=== PATIENT | male | born 1945 | race Caucasian/White ===

== ENCOUNTER → 2016-07-25 | Outpatient (CLI) | payer OTHER | LOC: FIMAGING 14:14 | PROVIDERS: ATTEND Family Medicine | DX: Z13.820 Encounter for screening for osteoporosis (principal); M85.80 Other specified disorders of bone density and structure, unspecified site; R29.890 Loss of height; Z82.62 Family history of osteoporosis ==

== ENCOUNTER → 2017-03-10 | Outpatient (CLI) | payer OTHER | LOC: FIMAGING 10:08 | PROVIDERS: ATTEND Family Medicine | DX: R13.10 Dysphagia, unspecified (principal); J02.9 Acute pharyngitis, unspecified ==

== ENCOUNTER 2017-05-29 15:16 | Emergency (ER) | payer OTHER ==
[2017-05-29 15:52] VITALS: PULSE 75; RESP 16; TEMP 98.2; O2SAT 92
--- NOTE | 2017-05-29 16:13 | EDPHY ---
H & P Stated Complaint: high BP Time Seen by Provider: 05/29/17 15:59 HPI/ROS: CHIEF COMPLAINT: High blood pressure HISTORY OF PRESENT ILLNESS: The patient is a 72 y/o male arriving with his for evaluation of elevated blood pressure over the last few days. His medical history includes hypertension, COPD, borderline diabetes, and anemia. He saw his PCP last week for an annual physical and they noted his SpO2 was low. His was recently diagnosed with the flu, so they swabbed him and found him also positive for influenza. He was placed on 5 days of prednisone and completed it 3 days ago. He has been having "sinus pain," mild headache, mild wheezing and coughing in the evenings, and nasal congestion over the last several days and has been using OTC cold medications containing phenylephrine during this time. He also feels like his equilibrium is slightly off when transitioning to standing, but denies dizziness or room spinning. He checked his blood pressure 2 nights ago at 156/94. He measured it again today in a similar range so he called his PCP's office and was instructed to come to the ED. He denies severe headache, vision changes, weakness, paresthesias, or other complaints. REVIEW OF SYSTEMS: Constitutional: No fever, no chills Eyes: No visual changes ENT: No sore throat Respiratory: see HPI Cardiac: No chest pain Gastrointestinal: No nausea, no vomiting, no abdominal pain Genitourinary: No hematuria, no dysuria Musculoskeletal: No leg pain or swelling Skin: No rash Neurological: +headache, no numbness, no weakness Psychiatric: No depression - Personal History Current Tetanus/Diphtheria Vaccine: Yes Current Tetanus Diphtheria and Acellular Pertussis (TDAP): Yes - Medical/Surgical History PMH: PMH includes: 1. COPD 2. Hypertension - not medicated 3. GERD 4. Anemia 5. BPH 6. Borderline diabetes 7. 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 Anxiety - Inderal PRN Hx Asthma: No Hx Chronic Respiratory Disease: Yes Hx Diabetes: Yes Hx Cardiac Disease: No Hx Renal Disease: No Hx Cirrhosis: No Hx Alcoholism: No Hx HIV/AIDS: No Hx Splenectomy or Spleen Trauma: No Other PMH: HTN, COPD, GERD, ANEMIA, BPH, BORDERLINE DIABETIC, BILATERAL KNEE REPLACEMENT, BILATERAL SHOULDER REPLACEMENT - Social History Smoking Status: Former smoker Additional Social History: at bedside. Lives in [place]. Former smoker. PCP: Dr. Morataya - Physical Exam Exam: General Appearance: Alert, no distress, BP 177/109 in triage Eyes: Pupils equal and round, no conjunctival pallor or injection ENT, Mouth: Mucous membranes moist Neck: Normal inspection Respiratory: Lungs are clear to auscultation Cardiovascular: Regular rate and rhythm Gastrointestinal: Abdomen is soft and non- tender Neurological: A&O, nonfocal, normal gait Skin: Warm and dry, no rash Extremities: Nontender, no pedal edema Psychiatric: Mood and affect normal Constitutional: Initial Vital Signs Temperature (C) 36.8 C 05/29/17 15:50 Heart Rate 75 05/29/17 15:50 Respiratory Rate 16 05/29/17 15:50 Blood Pressure 177/109 H 05/29/17 15:50 O2 Sat (%) 92 05/29/17 15:50 O2 Delivery Mode Room Air Allergies/Adverse Reactions: N-SAIDS Allergy (Uncoded 03/17/14 15:46) Home Medications: Medication Instructions Recorded Albuterol [Proventil Inhaler HFA 2 puffs IH Q4 PRN 03/14/14 (*)] Calcium Carbonate [Calcium] 500 mg PO DAILY PRN 03/14/14 Calcium/Magnesium/Vit D3 [Calcium 1 each PO BID 03/14/14 500 mg Tablet] Divalproex ER [Depakote ER 500 MG 500 mg PO TID 03/14/14 (*)] Ferrous Sulfate [Ferrous Sulf 325 325 mg PO DAILY 03/14/14 MG (*)] Glucosam/Chondr/Collagn/Hyalur 1 each PO DAILY 03/14/14 [Glucosamine & Chondroitin Cap] Herbals/Supplements -Info Only 1 ea PO DAILY 03/14/14 Magnesium Oxide [Magnesium Oxide 500 mg PO DAILY 03/14/14 500 mg] Multivitamins [Multivitamin (*)] 1 each PO DAILY 03/14/14 Omeprazole [Prilosec 20 mg] 20 mg PO DAILY PRN 03/14/14 Tiotropium Inhaler [Spiriva 1 inh IH DAILY PRN 03/14/14 Inhaler (RX)] Zinc Sulfate 220 mg PO BID 03/14/14 Inderal LA 05/29/17 Zolpidem Tartrate 05/29/17 Medical Decision Making ED Course/Re-evaluation: This is a 72 y/o male with COPD and unmediated hypertension who presents for evaluation of two high BP readings (~150/100) over the last 2 days in the setting of recent influenza illness. He has been using OTC medications containing phenylephrine for the past several days as well as prednisone that are likely contributing to his hypertension. He does not have acute associated symptoms that would indicate hypertensive urgency or hypertensive emergency and is currently feeling well. His exam is unremarkable. I have advised him to discontinue medications containing phenylephrine and to keep a BP chart for the next 2 weeks until following up with his PCP. Return precautions discussed. He is comfortable with this plan. Departure - Departure Disposition: Home, Routine, Self-Care Clinical Impression: Flu High blood pressure Qualifiers: Hypertension type: unspecified Qualified Code(s): I10 - Essential (primary) hypertension Condition: Good Instructions: Influenza (ED), Chronic Hypertension (ED) Additional Instructions: 1. Discontinue cold medications that contain phenylephrine. 2. Increase fluid and food intake. 3. Use 650mg Tylenol every 5-6 hours as needed for pain over the next few days. 4. Keep a blood pressure chart for the next 2 weeks. Measure it once in the morning and once in the evening. Bring this with you to your next primary care appointment. 5. Follow up with your PCP in the next 1-2 weeks or sooner if symptoms are not improving. 6. Return to the ED for any worsening of condition. Referrals: Javi Morataya, DO [Primary Care Provider] - As per Instructions Report Scribed for: Kat Thomas Report Scribed by: Anna Barros Date of Report: 05/29/17 Time of Report: 16:13 Physician Review and Approval Statement: 05/29/17 16:13 Portions of this note were transcribed by a medical transcription. I personally performed a history, physical exam, medical decision making, and confirmed accuracy of information the transcribed note.
[2017-05-29 16:30] VITALS: BP 157/102
== END 2017-05-29 16:29 | disposition home or self-care (01) ==
DX: I10 Essential (primary) hypertension (principal); J11.1 Influenza due to unidentified influenza virus with other respiratory manifestations; J44.9 Chronic obstructive pulmonary disease, unspecified; E11.9 Type 2 diabetes mellitus without complications; Z87.891 Personal history of nicotine dependence

== ENCOUNTER 2018-07-15 18:10 | Emergency (ER) | payer OTHER ==
[2018-07-15] MEDS ORDERED: NS 1,000 ML IV ONE (18:26)
--- NOTE | 2018-07-15 18:31 | EDPHY ---
H & P Stated Complaint: R arm weakness and dizziness [employer] Time Seen by Provider: 07/15/18 18:16 HPI/ROS: CHIEF COMPLAINT: Right arm numbness HISTORY OF PRESENT ILLNESS: Patient is a 73-year-old man with a history of anxiety, hypertension and COPD who had an episode this evening of arm numbness that persisted for about 15 min and then resolved spontaneously. He states that he was sitting at the table on his phone when his right arm felt numb. He states that it was the entire arm. He did not have any speech changes or facial sensation changes. No sensation changes in his leg. His states that he did not have any speech changes or facial droop. No headache. No chest pain. No shortness of breath. He states that he felt like he might drop the phone so he said on the table and his called paramedics. By the time they arrived his symptoms resolved. Paramedics state however that when he stood up he felt lightheaded and had to sit back down in the care about the gurney. He is able to ambulate without difficulty. Severity: Moderate Modifying factors: Resolved REVIEW OF SYSTEMS: Constitutional: denies: chills, fever, recent illness, recent injury EENTM: denies: blurred vision, double vision, nose congestion Respiratory: denies: cough, shortness of breath Cardiac: denies: chest pain, irregular heart rate, lightheadedness, palpitations Gastrointestinal/Abdominal: denies: abdominal pain, diarrhea, nausea, vomiting, blood streaked stools Genitourinary: denies: dysuria, frequency, hematuria, pain Musculoskeletal: denies: joint pain, muscle pain Skin: denies: lesions, rash, jaundice, bruising Neurological: See HPI denies: headache, weakness Hematologic/Lymphatic: denies: blood clots, easy bleeding, easy bruising Immunologic/allergic: denies: HIV/AIDS, transplant 10 systems reviewed and negative except as noted EXAM: GENERAL: Well-appearing, well-nourished and in no acute distress. HEAD: Atraumatic, normocephalic. EYES: Pupils equal round and reactive to light, extraocular movements intact, sclera anicteric, conjunctiva are normal. ENT: TMs normal, nares patent, oropharynx clear without exudates. Moist mucous membranes. NECK: Normal range of motion, supple without lymphadenopathy or JVD. LUNGS: Breath sounds clear to auscultation bilaterally and equal. No wheezes rales or rhonchi. HEART: Regular rate and rhythm without murmurs, rubs or gallops. ABDOMEN: Soft, nontender, normoactive bowel sounds. No guarding, no rebound. No masses appreciated. BACK: No CVA tenderness, no spinal tenderness, step-offs or deformities EXTREMITIES: Normal range of motion, no pitting or edema. No clubbing or cyanosis. NEUROLOGICAL: NIH stroke score 0. Normal cerebellar exam. Cranial nerves II through XII grossly intact. Normal speech, normal gait. 5/5 strength, normal movement in all extremities, normal sensation, normal reflexes no pronator drift. Normal finger to nose. He can balance on one foot and on Tippy toes. PSYCH: Normal mood, normal affect. SKIN: Warm, dry, normal turgor, no visible rashes or lesions. Source: Patient Exam Limitations: No limitations - Medical/Surgical History Hx Asthma: No Hx Chronic Respiratory Disease: Yes Hx Diabetes: Yes Hx Cardiac Disease: No Hx Renal Disease: No Hx Cirrhosis: No Hx Alcoholism: No Hx HIV/AIDS: No Hx Splenectomy or Spleen Trauma: No Other PMH: Anxiety, HTN, COPD, GERD, ANEMIA, BPH, BORDERLINE DIABETIC, BILATERAL KNEE REPLACEMENT, BILATERAL SHOULDER REPLACEMENT - Family History Significant Family History: No pertinent family hx - Social History Smoking Status: Former smoker Alcohol Use: Sober Drug Use: None Constitutional: Initial Vital Signs Temperature (C) 36.6 C 07/15/18 18:18 Heart Rate 83 07/15/18 18:18 Respiratory Rate 16 07/15/18 18:18 Blood Pressure 159/111 H 07/15/18 18:18 O2 Sat (%) 93 07/15/18 18:18 O2 Delivery Mode Room Air Allergies/Adverse Reactions: N-SAIDS Allergy (Uncoded 03/17/14 15:46) Home Medications: Medication Instructions Recorded Albuterol [Proventil Inhaler HFA 2 puffs IH Q4 PRN 03/14/14 (*)] Calcium Carbonate [Calcium] 500 mg PO DAILY PRN 03/14/14 Calcium/Magnesium/Vit D3 [Calcium 1 each PO BID 03/14/14 500 mg Tablet] Divalproex ER [Depakote ER 500 MG 500 mg PO TID 03/14/14 (*)] Ferrous Sulfate [Ferrous Sulf 325 325 mg PO DAILY 03/14/14 MG (*)] Glucosam/Chondr/Collagn/Hyalur 1 each PO DAILY 03/14/14 [Glucosamine & Chondroitin Cap] Herbals/Supplements -Info Only 1 ea PO DAILY 03/14/14 Magnesium Oxide [Magnesium Oxide 500 mg PO DAILY 03/14/14 500 mg] Multivitamins [Multivitamin (*)] 1 each PO DAILY 03/14/14 Omeprazole [Prilosec 20 mg] 20 mg PO DAILY PRN 03/14/14 Tiotropium Inhaler [Spiriva 1 inh IH DAILY PRN 03/14/14 Inhaler (RX)] Zinc Sulfate 220 mg PO BID 03/14/14 Inderal LA 05/29/17 Zolpidem Tartrate 05/29/17 Aspirin 07/15/18 Medical Decision Making - Diagnostics EKG Interpretation: An EKG obtained and was read and documented in trace view. Please see trace view for full reading and report. Sinus rhythm unchanged from previous Imaging: Discussed imaging studies w/ call center rn Radiologist ED Course/Re-evaluation: 8:50 p.m. The patient remains asymptomatic CT and lab work is reassuring. I suspect he had a TIA. I have paged Neurology for consultation. 9:00 p.m. I spoke with Neurology. They agree with discharge and recommend taking a daily aspirin until they follow up with a neurologist. Patient is very eager to go home. Differential Diagnosis: Partial list of the Differential diagnosis considered include but were not limited to; TIA, anxiety, neuropathy, acute coronary disease and although unlikely based on the history and physical exam, I also considered trauma, infection. I discussed these differential diagnoses and the plan with the [ patient] as well as the usual and expected course. The [patient understands] that the diagnosis is provisional and that in medicine we are not always correct and that further workup is often warranted. Usual and customary warnings were given. All of the [patient's] questions were answered. The [ patient was] instructed to return to the emergency department should the symptoms at all worsen or return, otherwise to followup with the physician as we discussed. - Data Points Laboratory Results: Laboratory Results 07/15/18 18:39 07/15/18 18:39 Medications Given: Discontinued Medications Sodium Chloride (Ns) 1,000 mls @ 0 mls/hr IV ONCE ONE; Wide Open PRN Reason: Protocol Stop: 07/15/18 18:27 Last Admin: 07/15/18 18:50 Dose: 1,000 mls Point of Care Test Results: Chemistry 07/15/18 18:31 POC Troponin I 0.00 ng/mL ng/mL (0.00-0.08) Departure - Departure Disposition: Home, Routine, Self-Care Clinical Impression: Acute ischemic stroke Condition: Fair Instructions: Transient Ischemic Attack (ED) Additional Instructions: Take a baby aspirin daily Referrals: Patient,NotPresent [Unknown] - As per Instructions Priyank Goodwin, DO [Medical Doctor] - 2-3 days without fail
[2018-07-15 18:49] LABS: PLATELET COUNT 207 10^3/uL (150-400)
--- NOTE | 2018-07-15 18:56 | CPEKG ---
Test Reason : OPEN Blood Pressure : / mmHG Vent. Rate : 081 BPM Atrial Rate : 082 BPM P-R Int : 185 ms QRS Dur : 087 ms QT Int : 352 ms P-R-T Axes : 016 -27 013 degrees QTc Int : 409 ms Sinus rhythm Inferior infarct, old Anteroseptal infarct, old Confirmed by Azeem Yañez ([id number]) on 07/15/2018 6:55:19 PM Referred By: AZEEM YAÑEZ Confirmed By:Azeem Yañez
[2018-07-15 19:01] LABS: INR 0.98 (0.83-1.16); PROTIME(PATIENT) 12.6 SEC (12.0-15.0)
[2018-07-15] MEDS ORDERED: IOPAMIDOL (ISOVUE-370) 150 ML BTL IV ONE (19:26)
[2018-07-15 21:15] VITALS: BP 165/106
== END 2018-07-15 21:15 | disposition home or self-care (01) ==
LOC: EDUNIT#
DX: I63.9 Cerebral infarction, unspecified (principal); I10 Essential (primary) hypertension; J44.9 Chronic obstructive pulmonary disease, unspecified; F41.9 Anxiety disorder, unspecified; E86.9 Volume depletion, unspecified
CPT/HCPCS: 70450; 70496; 70498; 93005; 96360; 99285; Q9967; 84484-ER

== ENCOUNTER → 2018-07-22 | Outpatient (CLI) | payer OTHER | LOC: FIMAGING 19:01 | PROVIDERS: ATTEND Psychiatry & Neurology Neurology | DX: R20.0 Anesthesia of skin (principal) | CPT/HCPCS: 70551-PN ==

== ENCOUNTER → 2018-08-24 | Outpatient (CLI) | payer OTHER | LOC: EDSTATUS 12:59 → GIMAGING 14:50 | PROVIDERS: ATTEND Family Medicine | DX: J98.4 Other disorders of lung (principal) | CPT/HCPCS: 71046-PO ==